=== PATIENT | male | born 1940 | race Two or more races ===

== ENCOUNTER 2024-12-08 15:50 | Inpatient (IN) | payer OTHER ==
[~2024-12-08] VITALS: Ht 182.9 cm; Wt 108.9 kg
[2024-12-08] MEDS ORDERED: LASIX20 MG PO (16:08)
[2024-12-08] MEDS ORDERED: XARELTO10 MG (16:08)
[2024-12-08] MEDS ORDERED: CARVEDILOL ER40 MG PO (16:09)
[2024-12-08] MEDS ORDERED: TEMAZEPAM7.5 MG PO (16:09)
[2024-12-08] MEDS ORDERED: TAMS0.4C PO (16:10)
[2024-12-08] MEDS ORDERED: GLIPIZIDE XL10 MG PO (16:10)
[2024-12-08] MEDS ORDERED: JARDIANCE10 MG PO (16:10)
[2024-12-08] MEDS ORDERED: VYNDAMAX61 MG PO (16:11)
[2024-12-08 16:45] LABS: BASO % 0.2 % (0.1-1.2); EOS # 0.01 (0.04-0.54); EOS % 0.1 % (0.7-7.0); LYMPH # 0.79 (1.18-3.74); LYMPH % 6.2 % (19.3-53.1); MEAN PLATELET VOLUME 10.70 fl (9.4-12.4); MONO # 0.78 (0.24-0.82); MONO % 6.1 % (4.7-12.5); NEUT # 11.12 (1.56-6.13); NEUT % 86.6 % (34.0-71.1); RED CELL DISTRIBUTION WIDTH 14.8 % (11.6-14.4)
[2024-12-08 17:36] LABS: ALT/SGPT 23.0 U/L (12-78); AST/SGOT 38.0 U/L (15-37); BILIRUBIN TOTAL 0.79 mg/dL (0.3-1.2); BUN CREA RATIO 27.0 (7.0-25.0); CREATININE SERUM 0.67 mg/dL (0.70-1.30); GFR 113.01; GLOBULINA 3.9 G/DL (2.4-3.5); GLUCOSE FASTING 110.0 mg/dL (65-100); OSMOLALITY SERUM 273.0 MOSM/KG (275-295)
[2024-12-08 17:47] LABS: BILIRUBIN,CONJUGATED 0.21 mg/dL (0.0-0.2)
[2024-12-08 17:59] LABS: COVID-19 AG NEGATIVE (NEGATIVE)
[2024-12-08 18:14] LABS: URINE APPEARANCE Clear; URINE BILIRRUBIN Negative (NEGATIVE); URINE BLOOD Negative; URINE COLOR Yellow; URINE KETONE Negative (NEGATIVE); URINE LEUKOCYTE Negative; URINE NITRATE Negative; URINE PROTEIN Trace (NEGATIVE); URINE UROBILINOGEN 1.0 E.U./dl
[2024-12-08 18:18] LABS: URINE BACTERIA 215.3 uL (0.0-1933); URINE EPITHELIAL CELLS 3.7 uL (0.0-38.8); URINE RBC 12.2 uL (0.0-20.8); URINE WBC 20.2 uL (0.0-23.2)
[2024-12-08 18:24] LABS: URINE CAST 0.29 uL (0.0-1.40); URINE GLUCOSE >=1000 MG/DL (NEGATIVE)
[2024-12-08 18:32] LABS: INR 1.21
[2024-12-08] MEDS ORDERED: ENOXAPARIN SODIUM 40 MG/0.4 ML SYRINGE SUBCUTANEO SCH (21:34)
[2024-12-08] MEDS ORDERED: TAMSULOSIN HCL 0.4 MG CAP PO SCH (21:35)
[2024-12-08] MEDS ORDERED: NITROGLYCERIN IN 5 % DEXTROSE 250 ML IV SCH (21:45)
[2024-12-08 21:52] LABS: ABG PH 7.424 (7.35-7.45); ABG PO2 75.5 mmHg (80-100); BICARBONATE 35.9 mmol/l (23-25); o2 28 %
[2024-12-08] MEDS ORDERED: NITROGLYCERIN IN 5 % DEXTROSE 50 MG/250 ML BOTTLE IV ONE (22:21)
[2024-12-08] MEDS ORDERED: ENOXAPARIN SODIUM 40 MG/0.4 ML SYRINGE SUBCUTANEO ONE (23:04)
[2024-12-08] MEDS ORDERED: TAMSULOSIN HCL 0.4 MG CAP PO ONE (23:04)
[2024-12-08 23:21] VITALS: BP 119/74; O2SAT 98
[2024-12-09 00:42] LABS: CHOL HDL RATIO 3.1 (0-5.0); HDL 34.0 mg/dl (40-60); LDL 52.0 mg/dl (0-130); VLDL 20.0 (0-39)
[2024-12-09 00:43] LABS: PHOSPHOKINASE CREATININE 30 U/L (39-308)
[2024-12-09 01:01] LABS: CKMB < 1.0 NG/ML (0.5-3.6)
[2024-12-09 01:51] VITALS: O2SAT 97
[2024-12-09 06:07] VITALS: O2SAT 94
[2024-12-09 08:43] VITALS: BP 108/72
[2024-12-09] MEDS ORDERED: NITROGLYCERIN IN 5 % DEXTROSE 250 ML IV SCH (10:00)
[2024-12-09] MEDS ORDERED: CEFTRIAXONE SODIUM 2,000 MG VIAL IV SCH (12:00)
[2024-12-09 16:53] VITALS: BP 156/80; O2SAT 100
[2024-12-09 17:00] VITALS: O2SAT 100
[2024-12-09] MEDS ORDERED: TRAMADOL HCL 50 MG TABLET PO PRN (19:45)
[2024-12-09] MEDS ORDERED: TRAMADOL HCL 50 MG TABLET PO ONE (19:45)
[2024-12-09 21:00] VITALS: O2SAT 97
[2024-12-10] VITALS (9 sets, daily range): BP systolic 100–118; BP diastolic 60–74; O2SAT 90–100
[2024-12-10] MEDS ORDERED: ENOXAPARIN SODIUM 40 MG/0.4 ML SYRINGE SUBCUTANEO SCH (09:00)
[2024-12-10] MEDS ORDERED: ENOXAPARIN SODIUM 100 MG/ML SYRINGE SUBCUTANEO SCH (09:00)
[2024-12-10] MEDS ORDERED: PATIENTS OWN MEDICATION (MEDICAMENTO EN PISO) PO SCH (09:00)
[2024-12-11] VITALS (9 sets, daily range): BP systolic 115–121; BP diastolic 66–70; O2SAT 89–99
[2024-12-11] MEDS ORDERED: ACETAMINOPHEN 500 MG GEL..CAP PO PRN (07:15)
[2024-12-11] MEDS ORDERED: ISOSORBIDE DINITRATE 20 MG TABLET PO SCH (09:00)
[2024-12-11] MEDS ORDERED: PANTOPRAZOLE SODIUM 40 MG/VIAL VIAL IV PUSH SCH (09:00)
[2024-12-11] MEDS ORDERED: ALLOPURINOL 100 MG TABLET PO SCH (09:00)
[2024-12-11] MEDS ORDERED: IPRATROPIUM BROMIDE 0.5 MG/2.5 ML AMPUL.NEB IH SCH (09:00)
[2024-12-11] MEDS ORDERED: PATIENTS OWN MEDICATION (MEDICAMENTO EN PISO) PO SCH (09:00)
[2024-12-11] MEDS ORDERED: CARVEDILOL 3.125 MG TABLET PO SCH (09:00)
[2024-12-11] MEDS ORDERED: BUDESONIDE 0.5 MG/2 ML AMPUL.NEB IH SCH (09:00)
[2024-12-11 09:08] LABS: BASO % 0.2 % (0.1-1.2); EOS # 0.09 (0.04-0.54); EOS % 1.0 % (0.7-7.0); LYMPH # 0.90 (1.18-3.74); LYMPH % 10.3 % (19.3-53.1); MEAN PLATELET VOLUME 10.70 fl (9.4-12.4); MONO # 0.72 (0.24-0.82); MONO % 8.2 % (4.7-12.5); NEUT # 6.95 (1.56-6.13); NEUT % 79.7 % (34.0-71.1); RED CELL DISTRIBUTION WIDTH 14.6 % (11.6-14.4)
[2024-12-11 09:30] LABS: INR 1.1
[2024-12-11 09:40] LABS: ALT/SGPT 19.0 U/L (12-78); AST/SGOT 16.0 U/L (15-37); BILIRUBIN TOTAL 0.63 mg/dL (0.3-1.2); BUN CREA RATIO 33.0 (7.0-25.0); CREATININE SERUM 0.52 mg/dL (0.70-1.30); GFR 151.41; GLOBULINA 3.3 G/DL (2.4-3.5); GLUCOSE FASTING 110.0 mg/dL (65-100); OSMOLALITY SERUM 282.0 MOSM/KG (275-295)
[2024-12-11] MEDS ORDERED: AMPICILLIN SODIUM 2,000 MG VIAL IV SCH (13:00)
[2024-12-11] MEDS ORDERED: CEFTRIAXONE SODIUM 2,000 MG VIAL IV SCH (17:00)
[2024-12-11] MEDS ORDERED: TEMAZEPAM 15 MG CAPSULE PO SCH (21:00)
[2024-12-11] MEDS ORDERED: GABAPENTIN 300 MG CAPSULE PO SCH (21:00)
[2024-12-11] MEDS ORDERED: DOCUSATE SODIUM 100MG CAP PO SCH (21:00)
[2024-12-12] VITALS (7 sets, daily range): BP systolic 114–125; BP diastolic 67–80; O2SAT 87–99
[2024-12-12] MEDS ORDERED: LEVOTHYROXINE SODIUM 75 MCG TABLET PO SCH (06:00)
[2024-12-13] VITALS (10 sets, daily range): BP systolic 91–130; BP diastolic 52–81; O2SAT 90–99
[2024-12-13 10:44] LABS: BASO % 0.4 % (0.1-1.2); EOS # 0.15 (0.04-0.54); EOS % 2.1 % (0.7-7.0); LYMPH # 1.42 (1.18-3.74); LYMPH % 19.7 % (19.3-53.1); MEAN PLATELET VOLUME 10.60 fl (9.4-12.4); MONO # 0.77 (0.24-0.82); MONO % 10.7 % (4.7-12.5); NEUT # 4.78 (1.56-6.13); NEUT % 66.4 % (34.0-71.1); RED CELL DISTRIBUTION WIDTH 14.7 % (11.6-14.4)
[2024-12-13 11:22] LABS: INR 1.12
[2024-12-13 11:40] LABS: ALT/SGPT 18.0 U/L (12-78); AST/SGOT 18.0 U/L (15-37); BILIRUBIN TOTAL 0.31 mg/dL (0.3-1.2); BUN CREA RATIO 25.0 (7.0-25.0); CREATININE SERUM 0.6 mg/dL (0.70-1.30); GFR 128.36; GLOBULINA 3.4 G/DL (2.4-3.5); GLUCOSE FASTING 148.0 mg/dL (65-100); OSMOLALITY SERUM 281.0 MOSM/KG (275-295)
[2024-12-13 21:42] LABS: MONONUCLEAR 69.2 %; POLYMORPHONUCLEAR 30.8 %
[2024-12-13 22:00] LABS: GLU PLEURAL FLUID 170.0 mg/dl; LDH PLEURAL FLUID 48.0 U/L; TP PLEURAL FLUID 1.6 g/dl
[2024-12-14] VITALS (7 sets, daily range): BP systolic 127–128; BP diastolic 72–77; O2SAT 96–100
[2024-12-14] MEDS ORDERED: GLYCERIN 2.1 GM SUPP.RECT RECTAL NR (16:00)
[2024-12-14] MEDS ORDERED: DOCUSATE SODIUM 100MG CAP PO SCH (17:00)
[2024-12-14] MEDS ORDERED: PANTOPRAZOLE SODIUM 40 MG TABLET.DR PO SCH (21:00)
[2024-12-15] VITALS (10 sets, daily range): BP systolic 95–150; BP diastolic 56–97; O2SAT 90–100
[2024-12-15] MEDS ORDERED: NA PHOS,M-B/NA PHOS,DI-BA 1 BOTTLE ENEMA RECTAL NR (12:45)
[2024-12-15] MEDS ORDERED: POLYETHYLENE GLYCOL 3350 17 GM BLIST.PACK PO SCH (13:16)
[2024-12-15] MEDS ORDERED: TRAMADOL HCL 50 MG TABLET PO PRN (13:30)
[2024-12-16] VITALS (9 sets, daily range): BP systolic 128–135; BP diastolic 80–86; O2SAT 90–100
[2024-12-16 07:28] LABS: ALT/SGPT 18.0 U/L (12-78); AST/SGOT 22.0 U/L (15-37); BILIRUBIN TOTAL 0.46 mg/dL (0.3-1.2); BUN CREA RATIO 25.0 (7.0-25.0); CREATININE SERUM 0.61 mg/dL (0.70-1.30); GFR 125.93; GLOBULINA 3.4 G/DL (2.4-3.5); GLUCOSE FASTING 117.0 mg/dL (65-100); OSMOLALITY SERUM 281.0 MOSM/KG (275-295)
[2024-12-16 07:55] LABS: INR 1.09
[2024-12-16 08:10] LABS: BASO % 0.6 % (0.1-1.2); EOS # 0.20 (0.04-0.54); EOS % 2.9 % (0.7-7.0); LYMPH # 1.16 (1.18-3.74); LYMPH % 16.6 % (19.3-53.1); MEAN PLATELET VOLUME 10.80 fl (9.4-12.4); MONO # 0.59 (0.24-0.82); MONO % 8.4 % (4.7-12.5); NEUT # 4.97 (1.56-6.13); NEUT % 70.9 % (34.0-71.1); RED CELL DISTRIBUTION WIDTH 15.1 % (11.6-14.4)
[2024-12-16 09:07] LABS: ERYTHROCYTE SEDIMENTATION RATE 87 mm/hr (0-20)
[2024-12-16] MEDS ORDERED: [UNRECOGNIZED DRUG - OTHER] IV SCH (10:36)
[2024-12-16 11:30] LABS: FE 59.0 ug/dl (65-175)
[2024-12-16] MEDS ORDERED: MAGNESIUM SULFATE IN WATER 50 ML IV NR (11:30)
[2024-12-16] MEDS ORDERED: PREDNISONE 20 MG TABLET PO NR (11:30)
[2024-12-16] MEDS ORDERED: MULTIVIT INFUSN,ADULT 4,VIT K 10 ML VIAL IV SCH (12:00)
[2024-12-16] MEDS ORDERED: POTASSIUM CHLORIDE IN WATER 40 MEQ/100 ML PIGGYBAG IV ONE (13:07)
[2024-12-16 13:47] LABS: ABG PH 7.491 (7.35-7.45); BICARBONATE 41.0 mmol/l (23-25)
[2024-12-16 13:52] LABS: ABG PO2 56.3 mmHg (80-100); o2 21 %
[2024-12-16] MEDS ORDERED: POTASSIUM CHLORIDE IN WATER 40 MEQ/100 ML PIGGYBAG IV SCH (17:00)
[2024-12-16] MEDS ORDERED: AMINO ACIDS/PROTEIN HYDROLYS 30 ML BLIST.PACK PO SCH (17:00)
[2024-12-17] VITALS (7 sets, daily range): BP systolic 126–141; BP diastolic 70–85; O2SAT 90–99
[2024-12-17] MEDS ORDERED: PREDNISONE 20 MG TABLET PO SCH (09:00)
[2024-12-17] MEDS ORDERED: ACETAZOLAMIDE 250 MG TABLET PO SCH (09:17)
[2024-12-17 10:17] LABS: FOLIC ACID 7.48 ng/ml (4.78-20)
[2024-12-18] VITALS (8 sets, daily range): BP systolic 117–129; BP diastolic 60–66; O2SAT 96–99
[2024-12-18] MEDS ORDERED: ENOXAPARIN SODIUM 100 MG/ML SYRINGE SUBCUTANEO SCH (09:00)
[2024-12-18 10:45] LABS: URINE APPEARANCE Clear; URINE BILIRRUBIN Negative (NEGATIVE); URINE BLOOD Large; URINE COLOR Yellow; URINE KETONE Negative (NEGATIVE); URINE LEUKOCYTE Trace; URINE NITRATE Negative; URINE PROTEIN 30 (NEGATIVE); URINE UROBILINOGEN 2.0 E.U./dl
[2024-12-18 10:50] LABS: URINE BACTERIA 94.2 uL (0.0-1933); URINE EPITHELIAL CELLS 3.0 uL (0.0-38.8); URINE RBC 2343.9 uL (0.0-20.8); URINE WBC 115.8 uL (0.0-23.2)
[2024-12-18 10:52] LABS: URINE CAST 1.32 uL (0.0-1.40); URINE GLUCOSE 500 MG/DL (NEGATIVE)
[2024-12-18 11:28] LABS: BASO % 0.2 % (0.1-1.2); EOS # 0.04 (0.04-0.54); EOS % 0.6 % (0.7-7.0); LYMPH # 1.48 (1.18-3.74); LYMPH % 22.2 % (19.3-53.1); MEAN PLATELET VOLUME 10.90 fl (9.4-12.4); MONO # 0.49 (0.24-0.82); MONO % 7.4 % (4.7-12.5); NEUT # 4.55 (1.56-6.13); NEUT % 68.2 % (34.0-71.1); RED CELL DISTRIBUTION WIDTH 15.4 % (11.6-14.4)
[2024-12-18 11:53] LABS: INR 1.04
[2024-12-18 11:58] LABS: ALT/SGPT 19.0 U/L (12-78); AST/SGOT 18.0 U/L (15-37); BILIRUBIN TOTAL 0.24 mg/dL (0.3-1.2); BUN CREA RATIO 31.0 (7.0-25.0); CREATININE SERUM 0.8 mg/dL (0.70-1.30); GFR 92.1; GLOBULINA 3.8 G/DL (2.4-3.5); GLUCOSE FASTING 186.0 mg/dL (65-100); OSMOLALITY SERUM 289.0 MOSM/KG (275-295)
[2024-12-19 01:04] VITALS: O2SAT 93
[2024-12-19 01:30] VITALS: BP 118/70; O2SAT 97
[2024-12-19 05:01] VITALS: O2SAT 97
[2024-12-19 07:54] VITALS: BP 120/70
[2024-12-19] MEDS ORDERED: CEFTRIAXONE SODIUM 2,000 MG VIAL IV SCH (09:00)
[2024-12-19] MEDS ORDERED: AMPICILLIN SODIUM 2,000 MG VIAL IV SCH (09:00)
[2024-12-19 17:55] VITALS: BP 106/61; O2SAT 95
[2024-12-19] MEDS ORDERED: TEMAZEPAM 15 MG CAPSULE PO SCH (21:00)
[2024-12-20] VITALS (9 sets, daily range): BP systolic 111–122; BP diastolic 67–77; O2SAT 97–100
[2024-12-20 12:31] LABS: BASO % 0.4 % (0.1-1.2); EOS # 0.06 (0.04-0.54); EOS % 0.7 % (0.7-7.0); LYMPH # 1.51 (1.18-3.74); LYMPH % 18.1 % (19.3-53.1); MEAN PLATELET VOLUME 11.00 fl (9.4-12.4); MONO # 0.78 (0.24-0.82); MONO % 9.4 % (4.7-12.5); NEUT # 5.86 (1.56-6.13); NEUT % 70.3 % (34.0-71.1); RED CELL DISTRIBUTION WIDTH 16.0 % (11.6-14.4)
[2024-12-20 12:57] LABS: INR 1.1
[2024-12-20] MEDS ORDERED: PYRIDOSTIGMINE BROMIDE 60 MG TABLET PO SCH (13:00)
[2024-12-20 13:15] LABS: ALT/SGPT 23.0 U/L (12-78); AST/SGOT 22.0 U/L (15-37); BILIRUBIN TOTAL 0.32 mg/dL (0.3-1.2); BUN CREA RATIO 40.0 (7.0-25.0); CREATININE SERUM 0.68 mg/dL (0.70-1.30); GFR 111.09; GLOBULINA 3.2 G/DL (2.4-3.5); GLUCOSE FASTING 176.0 mg/dL (65-100); OSMOLALITY SERUM 293.0 MOSM/KG (275-295)
[2024-12-20 14:21] LABS: ABG PH 7.404 (7.35-7.45); ABG PO2 67.5 mmHg (80-100); BICARBONATE 32.6 mmol/l (23-25)
[2024-12-20 14:26] LABS: o2 21 %
[2024-12-21 00:30] VITALS: BP 135/80; O2SAT 95
[2024-12-21] MEDS ORDERED: ONDANSETRON HCL 2 MG/ML VIAL IV PRN (08:15)
[2024-12-21] MEDS ORDERED: ENOXAPARIN SODIUM 100 MG/ML SYRINGE SUBCUTANEO SCH (09:00)
[2024-12-21] MEDS ORDERED: PANTOPRAZOLE SODIUM 40 MG/VIAL VIAL IV PUSH SCH (09:00)
[2024-12-21 09:28] VITALS: BP 157/86
[2024-12-21 09:36] VITALS: O2SAT 99
[2024-12-21 12:30] VITALS: O2SAT 97
[2024-12-21 16:52] VITALS: BP 139/96; O2SAT 97
[2024-12-21] MEDS ORDERED: ACETAZOLAMIDE 250 MG TABLET PO SCH (21:00)
[2024-12-22] VITALS (9 sets, daily range): BP systolic 130–142; BP diastolic 78–81; O2SAT 90–99
[2024-12-22] MEDS ORDERED: LACTOBACILLUS ACIDOPHILUS 1 CAP CAP PO SCH (17:00)
[2024-12-23] VITALS (9 sets, daily range): BP systolic 119–133; BP diastolic 76–94; O2SAT 96–100
[2024-12-24] VITALS (10 sets, daily range): BP systolic 106–160; BP diastolic 64–81; O2SAT 90–100
[2024-12-24] MEDS ORDERED: CHOLESTYRAMINE/ASPARTAME LIGHT 4 G/PKT PACKET PO SCH (17:00)
[2024-12-24 18:27] LABS: BASO % 0.1 % (0.1-1.2); EOS # 0.07 (0.04-0.54); EOS % 0.8 % (0.7-7.0); LYMPH # 0.97 (1.18-3.74); LYMPH % 11.2 % (19.3-53.1); MEAN PLATELET VOLUME 11.20 fl (9.4-12.4); MONO # 0.69 (0.24-0.82); MONO % 8.0 % (4.7-12.5); NEUT # 6.85 (1.56-6.13); NEUT % 79.2 % (34.0-71.1); RED CELL DISTRIBUTION WIDTH 17.0 % (11.6-14.4)
[2024-12-24 18:43] LABS: INR 1.12
[2024-12-24 18:48] LABS: ALT/SGPT 20.0 U/L (12-78); AST/SGOT 13.0 U/L (15-37); BILIRUBIN TOTAL 0.41 mg/dL (0.3-1.2); BUN CREA RATIO 40.0 (7.0-25.0); CREATININE SERUM 0.86 mg/dL (0.70-1.30); GFR 84.72; GLOBULINA 2.9 G/DL (2.4-3.5); GLUCOSE FASTING 167.0 mg/dL (65-100); OSMOLALITY SERUM 298.0 MOSM/KG (275-295)
[2024-12-25] VITALS (7 sets, daily range): BP systolic 116–145; BP diastolic 64–86; O2SAT 89–100
[2024-12-25] MEDS ORDERED: GUAIFENESIN/DEXTROMETHORPHAN 100MG/10ML BLIST.PACK PO SCH (10:05)
[2024-12-25] MEDS ORDERED: SODIUM CHLORIDE FOR INHALATION 1 VIAL.NEB IH SCH (10:06)
[2024-12-26] VITALS (9 sets, daily range): BP systolic 121–147; BP diastolic 75–77; O2SAT 86–100
[2024-12-26] MEDS ORDERED: LEVALBUTEROL HCL 1.25 MG/3 ML SOLUTION IH SCH (09:47)
[2024-12-26] MEDS ORDERED: LOPERAMIDE HCL 2 MG CAPSULE PO STA (19:00)
[2024-12-26] MEDS ORDERED: LOPERAMIDE HCL 2 MG CAPSULE PO PRN (19:15)
[2024-12-26 21:21] LABS: URINE APPEARANCE Clear; URINE BILIRRUBIN Negative (NEGATIVE); URINE BLOOD Large; URINE COLOR Yellow; URINE KETONE Trace (NEGATIVE); URINE LEUKOCYTE Negative; URINE NITRATE Negative; URINE PROTEIN 30 (NEGATIVE); URINE UROBILINOGEN 0.2 E.U./dl
[2024-12-26 21:25] LABS: URINE BACTERIA 211.1 uL (0.0-1933); URINE CAST 4.39 uL (0.0-1.40); URINE EPITHELIAL CELLS 6.4 uL (0.0-38.8); URINE RBC 389.3 uL (0.0-20.8); URINE WBC 129.9 uL (0.0-23.2)
[2024-12-26 21:35] LABS: URINE GLUCOSE 500 MG/DL (NEGATIVE)
[2024-12-27] VITALS (9 sets, daily range): BP systolic 125–140; BP diastolic 71–90; O2SAT 90–96
[2024-12-27 08:52] LABS: BASO % 0.1 % (0.1-1.2); EOS # 0.12 (0.04-0.54); EOS % 1.7 % (0.7-7.0); LYMPH # 1.29 (1.18-3.74); LYMPH % 18.1 % (19.3-53.1); MEAN PLATELET VOLUME 11.10 fl (9.4-12.4); MONO # 0.71 (0.24-0.82); MONO % 10.0 % (4.7-12.5); NEUT # 4.95 (1.56-6.13); NEUT % 69.5 % (34.0-71.1); RED CELL DISTRIBUTION WIDTH 17.3 % (11.6-14.4)
[2024-12-27 09:45] LABS: INR 1.09
[2024-12-27 09:53] LABS: ALT/SGPT 15.0 U/L (12-78); AST/SGOT 17.0 U/L (15-37); BILIRUBIN TOTAL 0.5 mg/dL (0.3-1.2); BUN CREA RATIO 38.0 (7.0-25.0); CREATININE SERUM 0.65 mg/dL (0.70-1.30); GFR 117.03; GLOBULINA 3.1 G/DL (2.4-3.5); GLUCOSE FASTING 142.0 mg/dL (65-100); OSMOLALITY SERUM 292.0 MOSM/KG (275-295)
[2024-12-27] MEDS ORDERED: POTASSIUM CHLORIDE IN WATER 40 MEQ/100 ML PIGGYBAG IV SCH (13:00)
[2024-12-27] MEDS ORDERED: BANATROL PO SCH (17:00)
[2024-12-28] VITALS (8 sets, daily range): BP systolic 145–157; BP diastolic 79–88; O2SAT 90–99
[2024-12-29] VITALS (7 sets, daily range): BP systolic 115–127; BP diastolic 71–80; O2SAT 90–100
[2024-12-30] VITALS (9 sets, daily range): BP systolic 121–141; BP diastolic 80–95; O2SAT 90–100
[2024-12-30 07:57] LABS: BUN CREA RATIO 66.0 (7.0-25.0); CREATININE SERUM 0.58 mg/dL (0.70-1.30); GFR 133.48; GLUCOSE FASTING 142.0 mg/dL (65-100); OSMOLALITY SERUM 298.0 MOSM/KG (275-295)
[2024-12-31] VITALS (10 sets, daily range): BP systolic 123–159; BP diastolic 76–80; O2SAT 90–100
[2024-12-31 07:41] LABS: URINE APPEARANCE Clear; URINE BILIRRUBIN Negative (NEGATIVE); URINE BLOOD Trace; URINE COLOR Yellow; URINE KETONE Negative (NEGATIVE); URINE LEUKOCYTE Moderate; URINE NITRATE Negative; URINE PROTEIN Trace (NEGATIVE); URINE UROBILINOGEN 0.2 E.U./dl
[2024-12-31 07:46] LABS: URINE BACTERIA 388.7 uL (0.0-1933); URINE EPITHELIAL CELLS 11.3 uL (0.0-38.8); URINE RBC 12.1 uL (0.0-20.8); URINE WBC 16.6 uL (0.0-23.2)
[2024-12-31 08:09] LABS: URINE CAST 0.14 uL (0.0-1.40); URINE GLUCOSE >=1000 MG/DL (NEGATIVE)
[2024-12-31 08:10] LABS: URINE YEAST FEW /hpf
[2024-12-31 17:13] LABS: BASO % 0.1 % (0.1-1.2); EOS # 0.00 (0.04-0.54); EOS % 0.0 % (0.7-7.0); LYMPH # 0.73 (1.18-3.74); LYMPH % 7.4 % (19.3-53.1); MEAN PLATELET VOLUME 12.80 fl (9.4-12.4); MONO # 0.57 (0.24-0.82); MONO % 5.8 % (4.7-12.5); NEUT # 8.50 (1.56-6.13); NEUT % 86.1 % (34.0-71.1); RED CELL DISTRIBUTION WIDTH 17.6 % (11.6-14.4)
[2024-12-31 17:40] LABS: ALT/SGPT 52.0 U/L (12-78); AST/SGOT 32.0 U/L (15-37); BILIRUBIN TOTAL 0.51 mg/dL (0.3-1.2); BUN CREA RATIO 44.0 (7.0-25.0); CREATININE SERUM 0.75 mg/dL (0.70-1.30); GFR 99.22; GLOBULINA 2.9 G/DL (2.4-3.5); GLUCOSE FASTING 193.0 mg/dL (65-100); OSMOLALITY SERUM 301.0 MOSM/KG (275-295)
[2024-12-31 22:22] LABS: COVID-19 AG NEGATIVE (NEGATIVE)
[2025-01-01] VITALS (8 sets, daily range): BP systolic 115–144; BP diastolic 68–90; O2SAT 89–99
[2025-01-01] MEDS ORDERED: ACETAZOLAMIDE 250 MG TABLET PO SCH (09:00)
[2025-01-01] MEDS ORDERED: MAGNESIUM SULFATE IN WATER 50 ML IV NR (09:00)
[2025-01-01] MEDS ORDERED: METHYLPREDNISOLONE SOD SUCC 40 MG VIAL IV SCH (09:00)
[2025-01-01 10:07] LABS: ABG PH 7.423 (7.35-7.45); ABG PO2 104.2 mmHg (80-100); BICARBONATE 35.0 mmol/l (23-25)
[2025-01-01] MEDS ORDERED: POTASSIUM CHLORIDE IN WATER 100 ML IV SCH (12:00)
[2025-01-02] VITALS (9 sets, daily range): BP systolic 142–160; BP diastolic 77–85; O2SAT 87–100
[2025-01-02] MEDS ORDERED: ONDANSETRON 4 MG TAB.RAPDIS PO PRN (08:00)
[2025-01-02] MEDS ORDERED: PANTOPRAZOLE SODIUM 40 MG TABLET.DR PO SCH (09:00)
[2025-01-02 10:30] LABS: o2 32 %
[2025-01-02] MEDS ORDERED: SPIRONOLACTONE 25 MG TABLET PO SCH (17:00)
[2025-01-03] VITALS (7 sets, daily range): BP systolic 117–153; BP diastolic 66–93; O2SAT 89–100
[2025-01-03 08:51] LABS: BASO % 0.1 % (0.1-1.2); EOS # 0.00 (0.04-0.54); EOS % 0.0 % (0.7-7.0); LYMPH # 0.65 (1.18-3.74); LYMPH % 5.9 % (19.3-53.1); MEAN PLATELET VOLUME 13.00 fl (9.4-12.4); MONO # 0.49 (0.24-0.82); MONO % 4.5 % (4.7-12.5); NEUT # 9.71 (1.56-6.13); NEUT % 88.8 % (34.0-71.1); RED CELL DISTRIBUTION WIDTH 18.0 % (11.6-14.4)
[2025-01-03 09:37] LABS: INR 1.22
[2025-01-03 09:58] LABS: ALT/SGPT 30.0 U/L (12-78); AST/SGOT 13.0 U/L (15-37); BILIRUBIN TOTAL 0.49 mg/dL (0.3-1.2); BUN CREA RATIO 28.0 (7.0-25.0); CREATININE SERUM 1.0 mg/dL (0.70-1.30); GFR 71.19; GLOBULINA 3.1 G/DL (2.4-3.5)
[2025-01-03 10:32] LABS: GLUCOSE FASTING 246.0 mg/dL (65-100); OSMOLALITY SERUM 304.0 MOSM/KG (275-295)
[2025-01-03] MEDS ORDERED: ACETYLCYSTEINE 200 MG/ML 30ML VIAL IH SCH (11:26)
[2025-01-03] MEDS ORDERED: TEMAZEPAM 15 MG CAPSULE PO SCH (21:00)
[2025-01-04 00:27] VITALS: O2SAT 100
[2025-01-04 02:27] VITALS: BP 118/64; O2SAT 100
[2025-01-04 03:30] VITALS: O2SAT 100
[2025-01-04 09:28] VITALS: BP 121/81; O2SAT 95
[2025-01-04 16:19] VITALS: O2SAT 99
[2025-01-04 17:16] VITALS: BP 160/77; O2SAT 97
[2025-01-05 00:39] VITALS: O2SAT 98
[2025-01-05 01:12] VITALS: BP 151/84; O2SAT 98
[2025-01-05 08:00] VITALS: BP 125/63; O2SAT 95
[2025-01-05 08:03] LABS: BASO % 0.0 % (0.1-1.2); EOS # 0.00 (0.04-0.54); EOS % 0.0 % (0.7-7.0); LYMPH # 0.50 (1.18-3.74); LYMPH % 5.2 % (19.3-53.1); MEAN PLATELET VOLUME 13.80 fl (9.4-12.4); MONO # 0.48 (0.24-0.82); MONO % 5.0 % (4.7-12.5); NEUT # 8.60 (1.56-6.13); NEUT % 89.1 % (34.0-71.1); RED CELL DISTRIBUTION WIDTH 17.2 % (11.6-14.4)
[2025-01-05 16:32] LABS: ABG PH 7.463 (7.35-7.45); BICARBONATE 45.1 mmol/l (23-25)
[2025-01-05 16:53] LABS: ABG PO2 57.1 mmHg (80-100); o2 32 %
[2025-01-05 18:27] VITALS: BP 140/74; O2SAT 100
[2025-01-05 19:19] VITALS: O2SAT 100
[2025-01-05 19:22] VITALS: O2SAT 80
[2025-01-05] MEDS ORDERED: ACETAZOLAMIDE 250 MG TABLET PO SCH (21:39)
[2025-01-06] VITALS (8 sets, daily range): BP systolic 114–160; BP diastolic 73–80; O2SAT 90–100
[2025-01-07] VITALS (8 sets, daily range): BP systolic 120–156; BP diastolic 75–80; O2SAT 90–100
[2025-01-07 06:20] LABS: BASO % 0.1 % (0.1-1.2); EOS # 0.04 (0.04-0.54); EOS % 0.4 % (0.7-7.0); LYMPH # 1.11 (1.18-3.74); LYMPH % 10.4 % (19.3-53.1); MEAN PLATELET VOLUME 13.30 fl (9.4-12.4); MONO # 0.52 (0.24-0.82); MONO % 4.9 % (4.7-12.5); NEUT # 8.91 (1.56-6.13); NEUT % 83.8 % (34.0-71.1); RED CELL DISTRIBUTION WIDTH 17.7 % (11.6-14.4)
[2025-01-07 07:30] LABS: ALT/SGPT 49.0 U/L (12-78); AST/SGOT 17.0 U/L (15-37); BILIRUBIN TOTAL 0.56 mg/dL (0.3-1.2); BUN CREA RATIO 29.0 (7.0-25.0); CREATININE SERUM 0.77 mg/dL (0.70-1.30); GFR 96.25; GLOBULINA 2.6 G/DL (2.4-3.5); GLUCOSE FASTING 196.0 mg/dL (65-100); OSMOLALITY SERUM 303.0 MOSM/KG (275-295)
[2025-01-07] MEDS ORDERED: APIXABAN 5 MG TABLET PO SCH (09:00)
[2025-01-07] MEDS ORDERED: MAGNESIUM SULFATE/D5W 1GM/100ML PIGGYBAG IV NR (11:35)
[2025-01-07] MEDS ORDERED: POTASSIUM CHLORIDE IN WATER 40 MEQ/100 ML PIGGYBAG IV SCH (13:00)
[2025-01-07] MEDS ORDERED: CEFEPIME HCL 2,000 MG in 0.9 % SODIUM CHLORIDE 100 ML IV SCH (17:00)
[2025-01-07] MEDS ORDERED: TRANEXAMIC ACID 100MG/1ML (1000MG) AMPUL IV SCH (21:00)
[2025-01-08 00:25] VITALS: O2SAT 94
[2025-01-08 00:28] VITALS: O2SAT 98
[2025-01-08 01:11] VITALS: BP 118/74; O2SAT 93
[2025-01-08 05:30] VITALS: O2SAT 90
[2025-01-08] MEDS ORDERED: INSULIN LISPRO 1,000 UNIT/10 ML UNITS SUBCUTANEO PRN (08:15)
[2025-01-08] MEDS ORDERED: DEXTROSE 50 % IN WATER 0.5 G/ML VIAL IV PRN (08:15)
[2025-01-08] MEDS ORDERED: TRANEXAMIC ACID 100MG/1ML (1000MG) AMPUL IH SCH (09:00)
[2025-01-08] MEDS ORDERED: POTASSIUM CHLORIDE 10 MEQ CAPSULE PO SCH (09:00)
[2025-01-08 09:12] VITALS: BP 136/80; O2SAT 99
[2025-01-08] MEDS ORDERED: ISOSORBIDE MONONITRATE 30 MG TABLET PO NR (10:45)
[2025-01-08 13:52] LABS: BASO % 0.1 % (0.1-1.2); EOS # 0.06 (0.04-0.54); EOS % 0.6 % (0.7-7.0); LYMPH # 0.88 (1.18-3.74); LYMPH % 9.2 % (19.3-53.1); MEAN PLATELET VOLUME 13.30 fl (9.4-12.4); MONO # 0.42 (0.24-0.82); MONO % 4.4 % (4.7-12.5); NEUT # 8.12 (1.56-6.13); NEUT % 85.3 % (34.0-71.1); RED CELL DISTRIBUTION WIDTH 18.0 % (11.6-14.4)
[2025-01-08] MEDS ORDERED: HYDROCORTISONE SODIUM SUCC/PF 50 MG/ML ML IV SCH (14:00)
[2025-01-08 14:21] LABS: INR 1.08
[2025-01-08 14:32] LABS: ALT/SGPT 40.0 U/L (12-78); AST/SGOT 18.0 U/L (15-37); BILIRUBIN TOTAL 1.18 mg/dL (0.3-1.2); BUN CREA RATIO 32.0 (7.0-25.0); CREATININE SERUM 0.6 mg/dL (0.70-1.30); GFR 128.36; GLOBULINA 2.7 G/DL (2.4-3.5); GLUCOSE FASTING 150.0 mg/dL (65-100); OSMOLALITY SERUM 298.0 MOSM/KG (275-295)
[2025-01-08] MEDS ORDERED: POTASSIUM CHLORIDE IN WATER 40 MEQ/100 ML PIGGYBAG IV SCH (17:00)
[2025-01-08 17:09] VITALS: BP 124/86; O2SAT 100
[2025-01-08 19:31] LABS: INR 1.08
[2025-01-08 20:04] LABS: BASO % 0.1 % (0.1-1.2); EOS # 0.02 (0.04-0.54); EOS % 0.2 % (0.7-7.0); LYMPH # 0.66 (1.18-3.74); LYMPH % 6.9 % (19.3-53.1); MEAN PLATELET VOLUME 13.40 fl (9.4-12.4); MONO # 0.36 (0.24-0.82); MONO % 3.8 % (4.7-12.5); NEUT # 8.51 (1.56-6.13); NEUT % 88.6 % (34.0-71.1); RED CELL DISTRIBUTION WIDTH 18.2 % (11.6-14.4)
[2025-01-08] MEDS ORDERED: GABAPENTIN 600 MG TABLET PO SCH (21:00)
[2025-01-09] VITALS (9 sets, daily range): BP systolic 118–129; BP diastolic 59–96; O2SAT 94–100
[2025-01-09] MEDS ORDERED: ISOSORBIDE MONONITRATE 30 MG TABLET PO SCH (09:00)
[2025-01-10] VITALS (7 sets, daily range): BP systolic 109–137; BP diastolic 65–75; O2SAT 89–99
[2025-01-10 09:11] LABS: ACTH 55.6 pg/mL (7.2-63.3); DHEA-SULFATE 16.0 ug/dL (20.8-226.4)
[2025-01-10 15:43] LABS: BASO % 0.0 % (0.1-1.2); EOS # 0.07 (0.04-0.54); EOS % 0.9 % (0.7-7.0); LYMPH # 1.06 (1.18-3.74); LYMPH % 13.0 % (19.3-53.1); MEAN PLATELET VOLUME 12.80 fl (9.4-12.4); MONO # 0.63 (0.24-0.82); MONO % 7.7 % (4.7-12.5); NEUT # 6.36 (1.56-6.13); NEUT % 77.9 % (34.0-71.1); RED CELL DISTRIBUTION WIDTH 18.0 % (11.6-14.4)
[2025-01-10 16:01] LABS: INR 1.16
[2025-01-10 16:19] LABS: ALT/SGPT 25.0 U/L (12-78); AST/SGOT 15.0 U/L (15-37); BILIRUBIN TOTAL 1.03 mg/dL (0.3-1.2); BUN CREA RATIO 32.0 (7.0-25.0); CREATININE SERUM 0.68 mg/dL (0.70-1.30); GFR 111.09; GLOBULINA 2.4 G/DL (2.4-3.5)
[2025-01-10 16:43] LABS: OSMOLALITY SERUM 300.0 MOSM/KG (275-295)
[2025-01-10 16:44] LABS: GLUCOSE FASTING 280.0 mg/dL (65-100)
[2025-01-10 17:08] LABS: Glycopro Negative (Negative); HL Negative (Negative); la Negative (Negative); lb Negative (Negative); llb Negative (Negative)
[2025-01-11] VITALS (8 sets, daily range): BP systolic 126–147; BP diastolic 85–90; O2SAT 95–99
[2025-01-11] MEDS ORDERED: INSULIN LISPRO 1,000 UNIT/10 ML UNITS SUBCUTANEO PRN (12:15)
[2025-01-11] MEDS ORDERED: DEXTROSE 50 % IN WATER 0.5 G/ML VIAL IV PRN (12:15)
[2025-01-11] MEDS ORDERED: CEFEPIME HCL 2,000 MG VIAL ONE (15:44)
[2025-01-12 03:04] VITALS: BP 121/81; O2SAT 97
[2025-01-12] MEDS ORDERED: SODIUM CL 0.9% 100 ML IV.SOLN IV ONE (08:01)
[2025-01-12 09:03] VITALS: BP 122/78; O2SAT 100
[2025-01-12 10:03] VITALS: O2SAT 90
[2025-01-12 12:46] VITALS: O2SAT 100
[2025-01-12 16:26] VITALS: BP 110/72
[2025-01-12] MEDS ORDERED: AMPICILLIN SODIUM 2,000 MG VIAL IV SCH (17:00)
[2025-01-13] VITALS (7 sets, daily range): BP systolic 101–115; BP diastolic 56–80; O2SAT 95–100
[2025-01-13 08:04] LABS: BASO % 0.0 % (0.1-1.2); EOS # 0.01 (0.04-0.54); EOS % 0.1 % (0.7-7.0); LYMPH # 0.64 (1.18-3.74); LYMPH % 8.3 % (19.3-53.1); MEAN PLATELET VOLUME 13.10 fl (9.4-12.4); MONO # 0.58 (0.24-0.82); MONO % 7.5 % (4.7-12.5); NEUT # 6.40 (1.56-6.13); NEUT % 83.3 % (34.0-71.1); RED CELL DISTRIBUTION WIDTH 17.2 % (11.6-14.4)
[2025-01-13 08:30] LABS: ALT/SGPT 22.0 U/L (12-78); AST/SGOT 14.0 U/L (15-37); BILIRUBIN TOTAL 0.89 mg/dL (0.3-1.2); BUN CREA RATIO 45.0 (7.0-25.0); CREATININE SERUM 0.67 mg/dL (0.70-1.30); GFR 113.01; GLOBULINA 2.5 G/DL (2.4-3.5); GLUCOSE FASTING 174.0 mg/dL (65-100); OSMOLALITY SERUM 293.0 MOSM/KG (275-295)
[2025-01-13] MEDS ORDERED: ACETAZOLAMIDE SODIUM 500 MG VIAL IV SCH (12:00)
[2025-01-13] MEDS ORDERED: CLOTRIMAZOLE 10 MG TROCHE MM SCH (17:00)
[2025-01-14 02:29] VITALS: BP 100/64; O2SAT 99
[2025-01-14 05:17] VITALS: O2SAT 90
[2025-01-14 08:19] VITALS: BP 138/85; O2SAT 96
[2025-01-14 11:53] VITALS: O2SAT 100
[2025-01-14 17:07] VITALS: BP 98/75
[2025-01-14] MEDS ORDERED: CEFTRIAXONE SODIUM 2,000 MG VIAL IV SCH (21:00)
[2025-01-15] VITALS (7 sets, daily range): BP systolic 125–166; BP diastolic 52–78; O2SAT 93–100
[2025-01-16] VITALS (8 sets, daily range): BP systolic 113–125; BP diastolic 68–83; O2SAT 96–100
[2025-01-16 07:46] LABS: ob POSITIVE (NEGATIVE)
[2025-01-16] MEDS ORDERED: DEXAMETHASONE SODIUM PHOSPHATE 4 MG/ML VIAL IV SCH (20:39)
[2025-01-16] MEDS ORDERED: REMDESIVIR 100 MG VIAL IV ONE (20:45)
[2025-01-17] VITALS (9 sets, daily range): BP systolic 119–174; BP diastolic 74–98; O2SAT 93–100
[2025-01-17 06:16] LABS: BASO % 0.1 % (0.1-1.2); EOS # 0.00 (0.04-0.54); EOS % 0.0 % (0.7-7.0); LYMPH # 0.40 (1.18-3.74); LYMPH % 4.1 % (19.3-53.1); MEAN PLATELET VOLUME 12.60 fl (9.4-12.4); MONO # 0.32 (0.24-0.82); MONO % 3.3 % (4.7-12.5); NEUT # 8.88 (1.56-6.13); NEUT % 92.0 % (34.0-71.1); RED CELL DISTRIBUTION WIDTH 17.5 % (11.6-14.4)
[2025-01-17 07:04] LABS: ALT/SGPT 19.0 U/L (12-78); AST/SGOT 13.0 U/L (15-37); BILIRUBIN TOTAL 0.69 mg/dL (0.3-1.2); BUN CREA RATIO 38.0 (7.0-25.0); CREATININE SERUM 0.64 mg/dL (0.70-1.30); GFR 119.14; GLOBULINA 2.7 G/DL (2.4-3.5); GLUCOSE FASTING 133.0 mg/dL (65-100); OSMOLALITY SERUM 291.0 MOSM/KG (275-295)
[2025-01-17] MEDS ORDERED: CLOTRIMAZOLE 10 MG TROCHE MM SCH (13:00)
[2025-01-17] MEDS ORDERED: MAG HYDROX/ALUMINUM HYD/SIMETH 30 ML BLIST.PACK PO ONE (16:37)
[2025-01-17] MEDS ORDERED: LIDOCAINE MM SCH (17:00)
[2025-01-17] MEDS ORDERED: MAGNESIUM HYDROXIDE MM SCH (17:00)
[2025-01-17] MEDS ORDERED: DIPHENHYDRAMINE MM SCH (17:00)
[2025-01-17] MEDS ORDERED: REMDESIVIR 100 MG VIAL IV SCH (17:00)
[2025-01-17] MEDS ORDERED: SPIRONOLACTONE 25 MG TABLET PO SCH (17:00)
[2025-01-17] MEDS ORDERED: ALUMINUM HYDROXIDE MM SCH (17:00)
[2025-01-17] MEDS ORDERED: SIMETHICONE MM SCH (17:00)
[2025-01-18] VITALS (9 sets, daily range): BP systolic 89–159; BP diastolic 53–87; O2SAT 88–100
[2025-01-18 12:13] LABS: ABG PH 7.421 (7.35-7.45); ABG PO2 106.0 mmHg (80-100); BICARBONATE 35.6 mmol/l (23-25)
[2025-01-18 13:49] LABS: o2 32 %
[2025-01-18] MEDS ORDERED: MAG HYDROX/ALUMINUM HYD/SIMETH 30 ML BLIST.PACK PO ONE (16:16)
[2025-01-19] VITALS (8 sets, daily range): BP systolic 139–141; BP diastolic 75–84; O2SAT 88–100
[2025-01-20] VITALS (9 sets, daily range): BP systolic 116–136; BP diastolic 78–95; O2SAT 90–100
[2025-01-20] MEDS ORDERED: APIXABAN 2.5 MG TABLET PO NR (11:15)
[2025-01-20 11:16] LABS: BASO % 0.1 % (0.1-1.2); EOS # 0.00 (0.04-0.54); EOS % 0.0 % (0.7-7.0); LYMPH # 0.65 (1.18-3.74); LYMPH % 9.4 % (19.3-53.1); MEAN PLATELET VOLUME 12.30 fl (9.4-12.4); MONO # 0.57 (0.24-0.82); MONO % 8.3 % (4.7-12.5); NEUT # 5.62 (1.56-6.13); NEUT % 81.8 % (34.0-71.1); RED CELL DISTRIBUTION WIDTH 17.3 % (11.6-14.4)
[2025-01-20 11:35] LABS: INR 1.39
[2025-01-20 11:38] LABS: ALT/SGPT 37.0 U/L (12-78); AST/SGOT 34.0 U/L (15-37); BILIRUBIN TOTAL 0.57 mg/dL (0.3-1.2); BUN CREA RATIO 33.0 (7.0-25.0); CREATININE SERUM 1.09 mg/dL (0.70-1.30); GFR 64.45; GLOBULINA 2.7 G/DL (2.4-3.5); OSMOLALITY SERUM 293.0 MOSM/KG (275-295)
[2025-01-20 11:43] LABS: GLUCOSE FASTING 228.0 mg/dL (65-100)
[2025-01-20] MEDS ORDERED: APIXABAN 2.5 MG TABLET PO SCH (21:00)
[2025-01-21] VITALS (7 sets, daily range): BP systolic 121–145; BP diastolic 77–90; O2SAT 89–100
[2025-01-21] MEDS ORDERED: HYDROCODONE/CHLORPHEN P-STIREX 5 ML ML PO SCH (09:29)
[2025-01-22 01:27] VITALS: O2SAT 90
[2025-01-22 01:39] VITALS: BP 120/72; O2SAT 97
[2025-01-22 05:37] VITALS: O2SAT 88
[2025-01-22] MEDS ORDERED: ELIQUIS2.5 MG PO (08:12)
[2025-01-22] MEDS ORDERED: XOPENEX CO1.25 MG/0. IH (08:12)
[2025-01-22] MEDS ORDERED: CARVEDILOL3.125 MG PO (08:13)
[2025-01-22] MEDS ORDERED: SPIRONOLACTONE25 MG PO (08:13)
[2025-01-22] MEDS ORDERED: ISOSORBIDE MONO30 MG PO (08:13)
[2025-01-22] MEDS ORDERED: VYNDAMAX61 MG PO (08:14)
[2025-01-22] MEDS ORDERED: TEMAZEPAM7.5 MG PO (08:14)
[2025-01-22] MEDS ORDERED: NEURONTIN600 MG PO (08:14)
[2025-01-22] MEDS ORDERED: LASIX40 MG PO (08:15)
[2025-01-22] MEDS ORDERED: QC TUSSIN DM 2237 ML PO (08:15)
[2025-01-22] MEDS ORDERED: HYDROCODONE-CH115 ML PO (08:15)
[2025-01-22] MEDS ORDERED: LEVOTHYROXINE75 MCG PO (08:16)
[2025-01-22] MEDS ORDERED: PANTOPRAZOLE SO40 MG PO (08:16)
[2025-01-22] MEDS ORDERED: INTESTINEX680 M1 PO (08:16)
[2025-01-22] MEDS ORDERED: JARDIANCE10 MG PO (08:16)
[2025-01-22] MEDS ORDERED: ZYLOPRIM100 M1 PO (08:17)
[2025-01-22] MEDS ORDERED: CLOTRIMAZOLE10 MG MM (08:17)
[2025-01-22] MEDS ORDERED: NASAL MIST126 ML NASAL (08:18)
[2025-01-22] MEDS ORDERED: LOSARTAN POTASS25 MG PO (08:18)
[2025-01-22] MEDS ORDERED: AUGMENTIN XR 11 EACH PO (08:18)
[2025-01-22 08:28] VITALS: BP 113/75; O2SAT 90
[2025-01-22 10:29] VITALS: O2SAT 82
[2025-01-22 14:03] VITALS: O2SAT 100
== END 2025-01-22 16:18 | disposition home or self-care (01) | DRG 288 ==
LOC: ER 15:50 → MEDI 22:39
PROVIDERS: Emergency Medicine; General Practice; Internal Medicine; Internal Medicine Infectious Disease; Radiology Vascular & Interventional Radiology; Student in an Organized Health Care Education/Training Program; ADMIT Internal Medicine; ATTEND Internal Medicine
PROC: B24BZZZ Ultrasonography of Heart with Aorta (ICD-10-PCS; 2024-12-08)
PROC: 4A12X4Z Monitoring of Cardiac Electrical Activity, External Approach (ICD-10-PCS; 2024-12-09)
PROC: BW24ZZZ Computerized Tomography (CT Scan) of Chest and Abdomen (ICD-10-PCS; 2024-12-10)
PROC: BW2FZZZ Computerized Tomography (CT Scan) of Neck (ICD-10-PCS; 2024-12-11)
PROC: BW24YZZ Computerized Tomography (CT Scan) of Chest and Abdomen using Other Contrast (ICD-10-PCS; 2024-12-12)
PROC: 0W9B3ZX Drainage of Left Pleural Cavity, Percutaneous Approach, Diagnostic (ICD-10-PCS; principal; 2024-12-13)
PROC: 0W993ZZ Drainage of Right Pleural Cavity, Percutaneous Approach (ICD-10-PCS; 2024-12-14)
PROC: B54CZZZ Ultrasonography of Left Lower Extremity Veins (ICD-10-PCS; 2024-12-18)
PROC: B54NZZZ Ultrasonography of Left Upper Extremity Veins (ICD-10-PCS; 2024-12-18)
PROC: 02HV33Z Insertion of Infusion Device into Superior Vena Cava, Percutaneous Approach (ICD-10-PCS; 2024-12-31)
PROC: BW24YZZ Computerized Tomography (CT Scan) of Chest and Abdomen using Other Contrast (ICD-10-PCS; 2025-01-07)
PROC: 8E0ZXY6 Isolation (ICD-10-PCS; 2025-01-11)
PROC: XW033E5 Introduction of Remdesivir Anti-infective into Peripheral Vein, Percutaneous Approach, New Technology Group 5 (ICD-10-PCS; 2025-01-17)
DX: I33.0 Acute and subacute infective endocarditis (principal); I50.23 Acute on chronic systolic (congestive) heart failure; J18.9 Pneumonia, unspecified organism; J98.59 Other diseases of mediastinum, not elsewhere classified; U07.1 COVID-19; E85.4 Organ-limited amyloidosis; R78.81 Bacteremia; R04.2 Hemoptysis; K92.2 Gastrointestinal hemorrhage, unspecified; I43 Cardiomyopathy in diseases classified elsewhere; I11.0 Hypertensive heart disease with heart failure; I34.0 Nonrheumatic mitral (valve) insufficiency; Z95.0 Presence of cardiac pacemaker; I48.91 Unspecified atrial fibrillation; I50.84 End stage heart failure; I27.20 Pulmonary hypertension, unspecified; B95.2 Enterococcus as the cause of diseases classified elsewhere; E78.5 Hyperlipidemia, unspecified; E87.5 Hyperkalemia; D49.89 Neoplasm of unspecified behavior of other specified sites; G70.00 Myasthenia gravis without (acute) exacerbation; D69.6 Thrombocytopenia, unspecified; D75.829 Heparin-induced thrombocytopenia, unspecified; D64.9 Anemia, unspecified
CPT/HCPCS: 71275